=== PATIENT | female | born 1950 | race Two or more races ===

== ENCOUNTER 2025-04-23 19:01 | Inpatient (IN) | payer OTHER ==
[~2025-04-23] VITALS: Ht 154.9 cm; Wt 78.9 kg
[2025-04-23 19:27] VITALS: O2SAT 98
[2025-04-23] MEDS: IV NS 0.9% 1,000 ML BAG IV ONE ×2 (19:48→22:09)
[2025-04-23] MEDS: MORPHINE SULFATE INJ 2 MG/ML DISP.SYRIN IV ONE (19:50)
[2025-04-23] MEDS ORDERED: ONDANSETRON HCL/PF 4 MG/2 ML VIAL ONE (19:51)
[2025-04-23] MEDS ORDERED: HYDROCODONE/APAP 5/325MG TABLET ONE (19:51)
[2025-04-23] MEDS: FAMOTIDINE/PF INJ 20 MG/2 ML VIAL IV ONE (19:52)
[2025-04-23] MEDS: ONDANSETRON HCL/PF 4 MG/2 ML VIAL IV ONE (19:52)
[2025-04-23] MEDS ORDERED: FAMOTIDINE/PF INJ 20 MG/2 ML VIAL IV ONE (19:52)
[2025-04-23] MEDS: HYDROCODONE/APAP 5/325MG TABLET PO ONE (19:52)
[2025-04-23 20:04] LABS: PLATELET COUNT (AUTO) 211 K/uL (150-450); RED BLOOD CELL COUNT(AUTO) 4.41 MIL/uL (4.0-5.2); RED CELL DISTRIBUTION WIDTH 13.6 % (11.5-15.0); WHITE BLOOD COUNT (AUTO) 16.6 K/uL (4.3-11.0)
[2025-04-23 20:13] LABS: CALCIUM, SERUM 9.0 mg/dL (8.5-10.1); CREATININE 0.7 mg/dL (0.6-1.3); SODIUM SERUM 134.0 mmol/L (136-145); UREA NITROGEN, BLOOD 12.0 mg/dL (7-18)
[2025-04-23 20:19] LABS: ASPARTATE AMINOTRANSFERASE 15.0 U/L (15-37); TOTAL PROTEIN, SERUM 7.4 g/dL (6.4-8.2)
[2025-04-23] MEDS ORDERED: IV NS 0.9% 250 ML IV ONE (20:20)
[2025-04-23] MEDS ORDERED: IOHEXOL-300 100 ML VIAL IV ONE (20:20)
[2025-04-23 21:36] LABS: APPEARANCE,URINE CLEAR (CLEAR); BLOOD, URINE TRACE-INTA Ery/uL (NEGATIVE); LEUKOCYTE ESTERASE ,URINE TRACE (NEGATIVE); NITRITE, URINE NEGATIVE (NEGATIVE); UGLUCOSE NEGATIVE (NEGATIVE)
[2025-04-23 21:39] LABS: ADD URINE CULTURE NO; SQUAMOUS EPITHELIAL CELL,UR 0-2 /HPF (None Seen)
[2025-04-23] MEDS: PIPERACILLIN /TAZOBACTAM 3.375 G in IV D5W 50 ML IV ONE (21:56)
[2025-04-23] MEDS ORDERED: PIPERACI/TAZO 3.375GM/D5W 50ML PB IV ONE (21:56)
[2025-04-23 22:12] LABS: INR 0.99 (0.91-1.10)
[2025-04-24 00:50] VITALS: BP 131/69; TEMP 97.3; O2SAT 98
[2025-04-24 01:00] VITALS: BP 131/69; TEMP 97.3; O2SAT 98
[2025-04-24] MEDS ORDERED: ACETAMINOPHEN 325 MG TABLET PO PRN (01:30)
[2025-04-24] MEDS ORDERED: MORPHINE SULFATE INJ 2 MG/ML DISP.SYRIN IV PRN (01:30)
[2025-04-24] MEDS ORDERED: ONDANSETRON HCL/PF 4 MG/2 ML VIAL IVP PRN (01:30)
[2025-04-24] MEDS ORDERED: MAGNESIUM HYDROXIDE 30 ML UDC PO PRN (01:30)
[2025-04-24] MEDS ORDERED: LISI10TA29 PO (01:31)
[2025-04-24] MEDS ORDERED: LEVO100T9 PO (01:33)
[2025-04-24] MEDS ORDERED: METF-440 PO (01:33)
[2025-04-24] MEDS ORDERED: CIPROFLOXACIN IV RTU 200 ML IV ONE (02:12)
[2025-04-24] MEDS: IV D5/0.45 NACL 1,000 ML IV PRN (02:20)
[2025-04-24] MEDS ORDERED: DEXTROSE 50%-WATER 50 ML DISP.SYRIN IV PRN (02:30)
[2025-04-24] MEDS: CIPROFLOXACIN IV RTU 400 MG in PREMIX 1 EA IV SCH ×2 (02:34→12:18)
[2025-04-24 04:00] VITALS: BP 118/65; TEMP 97.9; O2SAT 95
[2025-04-24] MEDS ORDERED: METRONIDAZOLE 500MG/ NS 100ML 100 ML IV ONE (05:17)
[2025-04-24] MEDS: BLOOD SUGAR DIAGNOSTIC 1 EACH STRIP IN SCH (06:02)
[2025-04-24] MEDS: METRONIDAZOLE 500MG/ NS 100ML 500 MG in PREMIX 1 EA IV SCH (06:11)
[2025-04-24 06:13] LABS: ASPARTATE AMINOTRANSFERASE 14.0 U/L (15-37); CALCIUM, SERUM 8.0 mg/dL (8.5-10.1); CREATININE 0.7 mg/dL (0.6-1.3); SODIUM SERUM 141.0 mmol/L (136-145); TOTAL PROTEIN, SERUM 5.9 g/dL (6.4-8.2); UREA NITROGEN, BLOOD 8.0 mg/dL (7-18)
[2025-04-24 06:15] LABS: LDL 70.0 mg/dL (0-99)
[2025-04-24] MEDS ORDERED: MORPHINE SULFATE INJ 4 MG/ML DISP.SYRIN IV PRN (06:30)
[2025-04-24 06:50] LABS: PLATELET COUNT (AUTO) 103 K/uL (150-450); RED BLOOD CELL COUNT(AUTO) 3.97 MIL/uL (4.0-5.2); RED CELL DISTRIBUTION WIDTH 13.4 % (11.5-15.0); WHITE BLOOD COUNT (AUTO) 10.7 K/uL (4.3-11.0)
[2025-04-24] MEDS: PANTOPRAZOLE 40 MG TABLET.DR PO SCH (07:30)
[2025-04-24 08:00] VITALS: BP 115/61; TEMP 98.1; O2SAT 96
[2025-04-24] MEDS: LEVOTHYROXINE SODIUM 100 MCG TABLET PO SCH (09:00)
[2025-04-24] MEDS: LISINOPRIL (10MG) 10 MG TABLET PO SCH (09:00)
[2025-04-24] MEDS: INSULIN REGULAR, HUMAN 100 UNIT/ML 3 ML VIAL SQ PRN (12:42)
[2025-04-24] MEDS ORDERED: ANESTHESIA TRAY IN PYXIS 1 EA TRAY MC ONE ×2 (14:47→17:41)
[2025-04-24] MEDS ORDERED: BUPIVACAINE 0.5 % PF 150 MG/30 ML VIAL ONE (14:47)
[2025-04-24] MEDS ORDERED: LIDOCAINE 1%-EPI 1:100,000 20 ML VIAL ONE (14:47)
[2025-04-24] MEDS ORDERED: FENTANYL PF 250MCG/5ML AMPUL ONE (16:16)
[2025-04-24] MEDS ORDERED: ROCURONIUM BROMIDE 50 MG/5 ML ONE (16:16)
[2025-04-24] MEDS: MORPHINE SULFATE INJ 4 MG/ML DISP.SYRIN IV PRN (18:47)
[2025-04-24 20:00] VITALS: BP 128/56; TEMP 98.2; O2SAT 98
[2025-04-25 07:02] LABS: CALCIUM, SERUM 8.0 mg/dL (8.5-10.1); CREATININE 0.6 mg/dL (0.6-1.3); PHOSPHORUS 2.6 mg/dL (2.5-4.9); SODIUM SERUM 142.0 mmol/L (136-145); UREA NITROGEN, BLOOD 5.0 mg/dL (7-18)
[2025-04-25 07:25] LABS: PLATELET COUNT (AUTO) 165 K/uL (150-450); RED BLOOD CELL COUNT(AUTO) 3.84 MIL/uL (4.0-5.2); RED CELL DISTRIBUTION WIDTH 13.5 % (11.5-15.0); WHITE BLOOD COUNT (AUTO) 8.0 K/uL (4.3-11.0)
[2025-04-25] MEDS ORDERED: ACET-907 PO (08:20)
[2025-04-25] MEDS ORDERED: CIPR-263 PO (08:20)
[2025-04-25] MEDS ORDERED: OXYC-128 PO (08:21)
[2025-04-25] MEDS: POTASSIUM CHLORIDE 20 MEQ TAB.PRT.SR PO ONE (08:54)
[2025-04-25 16:00] VITALS: BP 114/59; TEMP 98.1; O2SAT 97
== END 2025-04-25 17:30 | disposition home or self-care (01) | DRG 854 ==
LOC: ER 19:05 → MED 04-24 00:34 → TELE 04-24 01:43 → MED 04-24 11:55
PROVIDERS: ADMIT Nurse Practitioner Family; ATTEND Internal Medicine
PROC: 0DTJ4ZZ Resection of Appendix, Percutaneous Endoscopic Approach (ICD-10-PCS; principal; 2025-04-24 15:30)
DX: A41.9 Sepsis, unspecified organism (principal); E87.1 Hypo-osmolality and hyponatremia; K35.80 Unspecified acute appendicitis; E66.9 Obesity, unspecified; E03.9 Hypothyroidism, unspecified; K66.0 Peritoneal adhesions (postprocedural) (postinfection); Z68.33 Body mass index [BMI] 33.0-33.9, adult; E11.9 Type 2 diabetes mellitus without complications; I10 Essential (primary) hypertension; Z79.84 Long term (current) use of oral hypoglycemic drugs; Z88.6 Allergy status to analgesic agent; Z88.0 Allergy status to penicillin; Z90.721 Acquired absence of ovaries, unilateral; Z79.890 Hormone replacement therapy
CPT/HCPCS: 36415; 71045-TC; 80048-TC; 80053-TC; 80061-TC; 80076-TC; 81001; 82962-TC; 83605-TC; 83690-TC; 83735-TC; 84100-TC; 85025-TC; 85610-TC; 87040-TC; 87081-TC; 87086-TC; 88304-TC; 93307-TC; A4216; A4223; G0378; J0690; J0744; J1308; J1815; J2270; J2405; J2543; J2704; J3010; J3490; J7030; J7040; J7042; J7050; J7060; Q9967